=== PATIENT | male | born 1995 | race African-American/Black ===

== ENCOUNTER 2016-12-27 16:33 | Emergency (ER) | payer OTHER | END 2016-12-28 09:00 | disposition other institution (70) | LOC: ED 16:33 | DX: Z02.89 Encounter for other administrative examinations (principal) ==

== ENCOUNTER 2016-12-27 16:33 | Emergency (ER) | payer MEDICAID ==
[2016-12-28 00:42] LABS: AMPHETAMINE QUAL UR POSITIVE (NEG <=1000)
[2016-12-28 07:46] LABS: CALCIUM 9.2 mg/dL (8.5-10.1); CARBON DIOXIDE 26.3 mmol/L (21-32); CHLORIDE SERUM 104 mmol/L (98-107); GFR1 > 60 mL/min; GLUCOSE SERUM 74 mg/dL (74-106); POTASSIUM SERUM 3.9 mmol/L (3.5-5.1); SODIUM SERUM 138 mmol/L (136-145)
[2016-12-28 09:08] VITALS: BP 115/81
== END 2016-12-28 09:00 | disposition other institution (70) ==
LOC: ED 16:33
PROVIDERS: Emergency Medicine
DX: T43.621A Poisoning by amphetamines, accidental (unintentional), initial encounter (principal); Y92.89 Other specified places as the place of occurrence of the external cause
CPT/HCPCS: 80307; 82962; J1200; J1630; J2060